=== PATIENT | male | born 2000 | race Caucasian/White ===

== ENCOUNTER 2020-02-15 16:17 | Outpatient (CLI) | payer SELFPAY | END 2020-02-15 16:18 | disposition home or self-care (01) | LOC: COV 16:17 | PROVIDERS: ATTEND Family Medicine | DX: R50.9 Fever, unspecified (principal); Z20.828 Contact with and (suspected) exposure to other viral communicable diseases | CPT/HCPCS: 81599 ==

== ENCOUNTER 2021-12-08 17:32 | Outpatient (CLI) | payer BC, OTHER | END 2021-12-08 23:59 | disposition home or self-care (01) | LOC: LAB.S 17:32 | PROVIDERS: ATTEND Physician Assistant | DX: R05.9 Cough, unspecified (principal); Z20.822 Contact with and (suspected) exposure to COVID-19 ==